=== PATIENT | male | born 2000 | race Caucasian/White ===

== ENCOUNTER 2023-09-08 14:35 | Outpatient (REF) | payer OTHER, SELFPAY ==
--- NOTE | ~2023-09-08 | US_ITS ---
EXAMINATION: US SCROTUM CLINICAL INFORMATION: Right testicular mass. COMPARISON: None available. TECHNIQUE: A sonogram of the scrotum was performed assessing welch-scale appearance and color Doppler flow. Spectral Doppler analysis of the arterial and venous flow were performed in the testes bilaterally. FINDINGS: RIGHT: Right testicle measures 5.0 x 2.6 x 3.3 cm, volume 22.1 mL. Limited testicular microlithiasis. No testicular mass. Spectral Doppler analysis of the arterial and venous flow is normal in the right testis. Question of possibly equivocally mildly increased flow in the epididymis. Right epididymal head is normal in size. A 5 mm right epididymal head cyst. No right hydrocele or varicocele is seen. LEFT: Left testicle measures 5.1 x 2.3 x 3.2 cm, volume 19.3 mL. Limited testicular microlithiasis. No testicular mass. Spectral Doppler analysis of the arterial and venous flow is questionably possibly mildly increased in the left testis and epididymis. Left epididymal head is normal in size. No left hydrocele or varicocele is seen. US/US scrotum IMPRESSION: 1. Question of possibly equivocally mildly increased flow in the right epididymis and questionably possibly mildly increased flow in the left testicle and epididymis, which could reflect epididymitis/epididymoorchitis in the appropriate clinical setting. 2. Limited testicular microlithiasis. No testicular mass. 3. A 5 mm right epididymal head cyst, incidentally noted.
== END 2023-09-08 14:36 | disposition home or self-care (01) ==
LOC: HO.US 14:35
PROVIDERS: PCP Family Medicine; Visit Provider Student in an Organized Health Care Education/Training Program
DX: N50.89 Other specified disorders of the male genital organs (principal)
CPT/HCPCS: 76870